=== PATIENT | female | born 1990 | race Caucasian/White ===

== ENCOUNTER 2017-09-20 19:12 | Emergency (ER) | payer MEDICAID ==
[~2017-09-20] VITALS: Ht 170.2 cm; Wt 114.1 kg
[~2017-09-20 19:12] MED LIST: ALBU8.5H4 IH; BAC10T PO; BACDS PO; DICY10CA88 PO; LEVA15HF4 IH; LEVO100T46 PO; PANT-47 PO; PRED10TA PO; ZOF4T PO
[2017-09-20 19:58] LABS: BASOPHILS # (AUTO) 0.1 X10'3 (0-0.2); BASOPHILS % (AUTO) 0.8 % (0-1); EOSINOPHILS # (AUTO) 1.1 X10'3 (0-0.9); EOSINOPHILS % (AUTO) 11.5 % (0-6); HEMATOCRIT 38.9 % (35.0-45.0); HEMOGLOBIN 13.6 g/dl (12.0-16.0); LYMPHOCYTES # (AUTO) 2.3 X10'3 (1.1-4.8); MEAN CORPUSCULAR HEMOGLOBIN 30.6 PG (27.0-31.0); MEAN CORPUSCULAR HGB CONC 35.1 % (33.0-36.5); MEAN CORPUSCULAR VOLUME 87.1 FL (78-98); MEAN PLATELET VOLUME 8.7 FL (7.4-10.4); MONOCYTES # (AUTO) 0.6 X10'3 (0-0.9); MONOCYTES % (AUTO) 5.9 % (2-12); NEUTROPHILS # (AUTO) 5.8 X10'3 (1.8-7.7); NEUTROPHILS % (AUTO) 58.8 % (42-75); PLATELET COUNT 264 X10'3 (140-440); RED BLOOD COUNT 4.47 X10'6 (4.20-5.60); WHITE BLOOD COUNT 9.9 X10'3 (4.5-11.0)
[2017-09-20 20:08] LABS: PARTIAL THROMBOPLASTIN TIME 22 SECONDS (22-32); PROTHROMBIN TIME 9.9 SECONDS (9.0-12.0)
[2017-09-20 20:12] LABS: ALANINE AMINOTRANSFERASE 26 U/L (12-78); ALBUMIN 3.6 G/DL (3.4-5.0); ALKALINE PHOSPHATASE 81 IU/L (46-116); ANION GAP 7 (8-16); ASPARTATE AMINO TRANSFERASE 12 U/L (10-37); BILIRUBIN,TOTAL 0.2 MG/DL (0.1-1.0); BLOOD UREA NITROGEN 13 MG/DL (7-18); BUN/CREATININE RATIO 11.9 (6.6-38.0); CALCIUM 9.1 MG/DL (8.5-10.1); CHLORIDE 104 MMOL/L (99-107); CREATININE 1.09 MG/DL (0.40-0.90); GLUCOSE 134 MG/DL (70-104); POTASSIUM 4.2 MMOL/L (3.5-5.1); SODIUM 140 MMOL/L (135-145); TOTAL PROTEIN 7.3 G/DL (6.4-8.2); eGFR 60 ML/MIN
[2017-09-20 21:05] VITALS: BP 138/88
== END 2017-09-20 21:06 | disposition home or self-care (01) ==
LOC: ER 19:13
DX: R07.89 Other chest pain (principal); E03.9 Hypothyroidism, unspecified; J45.909 Unspecified asthma, uncomplicated; Z56.0 Unemployment, unspecified; Z79.899 Other long term (current) drug therapy
CPT/HCPCS: 36415; 71045; 80053; 84484; 85025; 85610; 85730; 93005; 99285

== ENCOUNTER 2018-05-06 19:48 | Emergency (ER) | payer MEDICAID, OTHER ==
[~2018-05-06] VITALS: Ht 170.2 cm; Wt 103.0 kg
[2018-05-06 20:01] VITALS: BP 131/85
[2018-05-06] MEDS ORDERED: ACET-3067 PO (20:50)
== END 2018-05-06 22:00 | disposition home or self-care (01) ==
LOC: ER 19:49
DX: S92.355A Nondisplaced fracture of fifth metatarsal bone, left foot, initial encounter for closed fracture (principal); J45.909 Unspecified asthma, uncomplicated; E03.9 Hypothyroidism, unspecified; Z88.8 Allergy status to other drugs, medicaments and biological substances; Z79.899 Other long term (current) drug therapy; W18.2XXA Fall in (into) shower or empty bathtub, initial encounter; Y93.E1 Activity, personal bathing and showering; Y92.89 Other specified places as the place of occurrence of the external cause; Y99.8 Other external cause status
CPT/HCPCS: 29515; 73630; 99283

== ENCOUNTER 2018-05-13 13:58 | Outpatient (CLI) | payer MEDICAID ==
[2018-05-13 13:56] VITALS: BP 135/86
[~2018-05-13 13:58] MED LIST changes: +ACET-3067 PO
== END 2018-05-13 14:27 | disposition home or self-care (01) ==
LOC: ORTHO 13:58
PROVIDERS: ATTEND Nurse Practitioner Family
DX: S92.355A Nondisplaced fracture of fifth metatarsal bone, left foot, initial encounter for closed fracture (principal); F17.200 Nicotine dependence, unspecified, uncomplicated; J45.909 Unspecified asthma, uncomplicated; Z88.8 Allergy status to other drugs, medicaments and biological substances; W18.2XXA Fall in (into) shower or empty bathtub, initial encounter; Y93.89 Activity, other specified; Y92.89 Other specified places as the place of occurrence of the external cause; Y99.8 Other external cause status
CPT/HCPCS: 99213

== ENCOUNTER 2018-06-03 14:42 | Outpatient (CLI) | payer MEDICAID ==
[~2018-06-03 14:42] MED LIST changes: -ACET-3067 PO
[2018-06-03 14:45] VITALS: BP 132/108
[2018-06-03 14:56] VITALS: BP 132/85
== END 2018-06-03 15:15 | disposition home or self-care (01) ==
LOC: ORTHO 14:42
PROVIDERS: ATTEND Nurse Practitioner Family
DX: S92.352D Displaced fracture of fifth metatarsal bone, left foot, subsequent encounter for fracture with routine healing (principal); F17.200 Nicotine dependence, unspecified, uncomplicated; J45.909 Unspecified asthma, uncomplicated; K21.9 Gastro-esophageal reflux disease without esophagitis; E03.9 Hypothyroidism, unspecified; F32.9 Major depressive disorder, single episode, unspecified; Z79.899 Other long term (current) drug therapy; W18.2XXD Fall in (into) shower or empty bathtub, subsequent encounter
CPT/HCPCS: 73630

== ENCOUNTER 2018-06-24 13:30 | Outpatient (CLI) | payer MEDICAID ==
[2018-06-24 13:27] VITALS: BP 138/96
== END 2018-06-24 13:56 | disposition home or self-care (01) ==
LOC: ORTHO 13:30
PROVIDERS: ATTEND Nurse Practitioner Family
DX: S92.352D Displaced fracture of fifth metatarsal bone, left foot, subsequent encounter for fracture with routine healing (principal); F17.200 Nicotine dependence, unspecified, uncomplicated; J45.909 Unspecified asthma, uncomplicated; K21.9 Gastro-esophageal reflux disease without esophagitis; E03.9 Hypothyroidism, unspecified; F32.9 Major depressive disorder, single episode, unspecified; Z79.899 Other long term (current) drug therapy; W18.2XXD Fall in (into) shower or empty bathtub, subsequent encounter
CPT/HCPCS: 73630; 99213

== ENCOUNTER 2018-07-22 15:35 | Outpatient (CLI) | payer MEDICAID ==
[2018-07-22 15:31] VITALS: BP 138/92
== END 2018-07-22 16:06 | disposition home or self-care (01) ==
LOC: ORTHO 15:35
PROVIDERS: ATTEND Nurse Practitioner Family
DX: S92.352D Displaced fracture of fifth metatarsal bone, left foot, subsequent encounter for fracture with routine healing (principal); J45.909 Unspecified asthma, uncomplicated; K21.9 Gastro-esophageal reflux disease without esophagitis; E03.9 Hypothyroidism, unspecified; F32.9 Major depressive disorder, single episode, unspecified; Z87.891 Personal history of nicotine dependence; W19.XXXD Unspecified fall, subsequent encounter
CPT/HCPCS: 73630; 99213

== ENCOUNTER 2024-11-10 09:59 | Outpatient (CLI) | payer MEDICAID ==
--- NOTE | 2024-11-10 11:23 | RADIOLOGY REPORT ---
CLINICAL INDICATION: RIGHT FOOT PAIN TECHNIQUE: 3 radiographic views of the right foot were obtained. Comparison: None FINDINGS/IMPRESSION: There is a nondisplaced fracture of the 5th metatarsal base. Small plantar calcaneal enthesophyte.
== END 2024-11-10 23:59 | disposition home or self-care (01) ==
LOC: RAD 09:59
PROVIDERS: ATTEND Family Medicine
DX: S92.354A Nondisplaced fracture of fifth metatarsal bone, right foot, initial encounter for closed fracture (principal); M79.671 Pain in right foot; M77.31 Calcaneal spur, right foot; X58.XXXA Exposure to other specified factors, initial encounter; Y93.89 Activity, other specified; Y92.89 Other specified places as the place of occurrence of the external cause; Y99.8 Other external cause status
CPT/HCPCS: 73630